=== PATIENT | female | born 1990 | race Hispanic/Latino ===

== ENCOUNTER 2018-12-15 14:18 | Emergency (ER) | payer OTHER ==
[~2018-12-15] VITALS: Ht 162.6 cm; Wt 89.6 kg
[2018-12-15] MEDS ORDERED: [UNRECOGNIZED DRUG - OTHER] (14:25)
[2018-12-15 15:02] LABS: BASO % 0.4 % (0.0-1.0); EOS # 0.1 10^3/uL (0.0-0.5); HEMATOCRIT 38.4 % (36.0-47.0); HEMOGLOBIN 12.8 g/dl (12.0-15.5); LYMPH % 27.3 % (24.0-44.0); MEAN CORPUSCULAR HEMOGLOBIN 30.3 pg (27.0-33.0); MEAN CORPUSCULAR HGB CONC 33.3 g/dl (32.0-36.5); MEAN CORPUSCULAR VOLUME 90.8 fl (80.0-96.0); MONO # 0.4 10^3/uL (0.0-0.8); MONO % 5.9 % (0.0-5.0); NEUTROPHILS # 4.6 10^3/uL (1.5-8.5); NEUTROPHILS % 64.1 % (36.0-66.0); PLATELET COUNT, AUTOMATED 248 10^3/uL (150-450); RED BLOOD COUNT 4.23 10^6/uL (4.00-5.40); WHITE BLOOD COUNT 7.2 10^3/uL (4.0-10.0)
[2018-12-15 15:31] LABS: BLOOD UREA NITROGEN 9 MG/DL (7-18); CARBON DIOXIDE LEVEL 28 MEQ/L (21-32); CHLORIDE LEVEL 107 MEQ/L (98-107); CREATININE FOR GFR 0.72 MG/DL (0.55-1.30); GLOMERULAR FILTRATION RATE > 60.0 (>60); GLUCOSE, FASTING 100 MG/DL (70-100); POTASSIUM SERUM 3.8 MEQ/L (3.5-5.1); SODIUM LEVEL 141 MEQ/L (136-145)
--- NOTE | 2018-12-15 17:01 | REP ---
Clinical: Spotting and pelvic pain for dating and viability. Technique: Transabdominal and transvaginal first trimester obstetrical ultrasound with color Doppler evaluation. Findings: Bladder is collapsed. Heterogeneous anteverted uterus measures 9.4 x 4.6 x 6.1 cm. Endometrial complex measures 14 mm thickness. No intrauterine identified. The bilateral ovaries are normal in appearance and vascularity without torsion. Right ovary measures 3.2 x 2.1 x 3.5 cm; RI 0.49. Left ovary measures 3.6 x 2.1 x 1.6 cm; venous flow noted. Small amount of free fluid in the pelvis. Impression: No intrauterine identified. Differential diagnosis includes early , missed , and less likely ectopic . Correlation with serial HCG levels recommended along with follow-up ultrasound as necessary. Electronically Signed by Emery Garay MD 12/15/2018 04:52 P
[2018-12-15] MEDS ORDERED: RHOGAM 300 MCG (1500 IU) INJ (J2790) IM ONE (17:15)
[2018-12-15 17:28] VITALS: BP 102/62
== END 2018-12-15 18:24 | disposition home or self-care (01) ==
LOC: M ED 14:18
DX: O20.8 Other hemorrhage in early pregnancy (principal); O99.330 Smoking (tobacco) complicating pregnancy, unspecified trimester; Z79.899 Other long term (current) drug therapy; Z88.1 Allergy status to other antibiotic agents
CPT/HCPCS: 76801; 76817; 80048; 84702; 85025; 86850; 86900; 86901; 93976; 96372; 99283; J2790

== ENCOUNTER → 2018-12-17 | Outpatient (CLI) | payer OTHER ==
[~2018-12-17] MED LIST: [UNRECOGNIZED DRUG - OTHER]
== END ==
LOC: M LAB 16:57
PROVIDERS: ATTEND Physician Assistant
DX: O46.90 Antepartum hemorrhage, unspecified, unspecified trimester (principal); Z3A.22 22 weeks gestation of pregnancy

== ENCOUNTER 2018-12-29 10:49 | Emergency (ER) | payer OTHER ==
[~2018-12-29] VITALS: Ht 162.6 cm; Wt 88.6 kg
[2018-12-29 11:37] LABS: BASO % 0.5 % (0.0-1.0); EOS # 0.1 10^3/uL (0.0-0.5); EOS % 1.7 % (0.0-3.0); HEMATOCRIT 36.7 % (36.0-47.0); HEMOGLOBIN 12.3 g/dl (12.0-15.5); LYMPH % 30.8 % (24.0-44.0); MEAN CORPUSCULAR HEMOGLOBIN 30.1 pg (27.0-33.0); MEAN CORPUSCULAR HGB CONC 33.5 g/dl (32.0-36.5); MEAN CORPUSCULAR VOLUME 89.7 fl (80.0-96.0); MONO # 0.4 10^3/uL (0.0-0.8); MONO % 6.8 % (0.0-5.0); NEUTROPHILS # 3.9 10^3/uL (1.5-8.5); NEUTROPHILS % 59.9 % (36.0-66.0); PLATELET COUNT, AUTOMATED 203 10^3/uL (150-450); RED BLOOD COUNT 4.09 10^6/uL (4.00-5.40); WHITE BLOOD COUNT 6.5 10^3/uL (4.0-10.0)
--- NOTE | 2018-12-29 13:05 | REP ---
First trimester obstetric ultrasound for dating and viability and for cramping/spotting: Comparison is 12/15/2018. There is an intrauterine gestational sac with a pole. There is cardiac activity, the heart rate is 113 beats per minute. The pole crown-rump length is 0.6 cm. This corresponds to a gestational age of 6 weeks 3 days. The CARMELLA is 08/21/2019. The gestational age by LMP is 8 weeks 1 day/CARMELLA 08/09/2019. There is no subchorionic hematoma. There is a right ovarian hemorrhagic cyst, likely a corpus luteum, measuring 1.7 cm in diameter. The left adnexa is unremarkable. There is no free fluid in the pelvis. Impression: 683-day viable intrauterine gestation. 1.7 cm right adnexal corpus luteum. No subchorionic hematoma. No free pelvic fluid. Electronically Signed by Kb Buitrago MD 12/29/2018 12:57 P
[2018-12-29 13:36] LABS: BLOOD UREA NITROGEN 8 MG/DL (7-18); CALCIUM LEVEL 9.2 MG/DL (8.5-10.1); CARBON DIOXIDE LEVEL 28 MEQ/L (21-32); CHLORIDE LEVEL 106 MEQ/L (98-107); CREATININE FOR GFR 0.64 MG/DL (0.55-1.30); GLOMERULAR FILTRATION RATE > 60.0 (>60); GLUCOSE, FASTING 92 MG/DL (70-100); HCG, SERUM QUANTITATIVE 28504 MIU/ML; POTASSIUM SERUM 4.1 MEQ/L (3.5-5.1); SODIUM LEVEL 139 MEQ/L (136-145)
[2018-12-29 13:49] VITALS: BP 112/68
== END 2018-12-29 13:51 | disposition home or self-care (01) ==
LOC: M ED 10:49
DX: O20.9 Hemorrhage in early pregnancy, unspecified (principal); Z88.2 Allergy status to sulfonamides; O99.331 Smoking (tobacco) complicating pregnancy, first trimester; F17.210 Nicotine dependence, cigarettes, uncomplicated; Z3A.01 Less than 8 weeks gestation of pregnancy